=== PATIENT | female | born 1975 | race Caucasian/White ===

== ENCOUNTER 2016-07-13 15:50 | Inpatient (IN) | payer OTHER ==
[~2016-07-13] VITALS: Ht 170.2 cm; Wt 70.0 kg
[2016-07-13] VITALS (13 sets, daily range): BP systolic 102–160; BP diastolic 56–95; PULSE 72–103; RESP 16–22; TEMP 97.7–99.1; O2SAT 96–100
[~2016-07-13 15:50] MED LIST: CALC600T10 PO; FURO20 PO; HYDR25R PR; LOSA50TA PO; MIREIUD IU; OMPR20CCR PO; ONDA8 PO; POTA-267 PO; SYNT125T PO; TAB-TAB PO
[2016-07-13] MEDS ORDERED: SODIUM CHLOR 0.9% 1000 ML INJ 1,000 ML IV SCH (16:09)
--- NOTE | 2016-07-13 16:14 | PD ---
HPI Chief Complaint: GI Complaint Time Seen by Provider: 16:14 Travel History International Travel<30 days: No Contact w/Intl Traveler<30days: No Traveled to known affect area: No History of Present Illness HPI 41-year-old female with history of cardiomyopathy, anemia secondary to recurrent /chronic GI bleed, hypertension presents to emergency department for evaluation. Patient states that she has internal hemorrhoids that bleed on and off and she has required transfusions in the past. Patient called Dr. Kamara this week and she has been having frequent stools again. She has an appointment follow-up with him in approximately a week but was advised if she didn't feel she could wait that long to come to the emergency department. Patient states she has been tired and more fatigued over the last 3 days. She is having intermittent bouts of dizziness with ambulation. No fever chills. No chest or tightness. Mild nausea without vomiting. No other symptoms to report at this time. PFSH Past Medical History Anemia: Yes Blood Disorders: No Cancer: No Cardiomyopathy: Yes Cardiovascular Problems: Yes (CARDIOMYOPATHY; ANEMIA; HTN; HX MULTIPLE BLOOD TRANSFUSIONS) Chemotherapy: No Diminished Hearing: No Endocrine: Yes Genitourinary: No Headaches: Yes Immune Disorder: No Musculoskeletal: No Neurologic: Yes Psychiatric: No Reproductive: No Respiratory: No Radiation Therapy: No Thyroid Disease: Yes (HYPO) ?: Not : 1 Para: 1 Miscarriage: 0 : 0 Past Surgical History Abdominal Surgery: No AICD: No Arteriovenous Shunt: No Cardiac Surgery: No Section: Yes Ear Surgery: No Endocrine Surgery: Yes (THYROIDECTOMY) Eye Surgery: No Genitourinary Surgery: No Gynecologic Surgery: No Insulin Pump: No Joint Replacement: No Oral Surgery: No Pacemaker: No Thoracic Surgery: No Other Surgery: Yes (THYROIDECTOMY) Social History Alcohol Use: No (DENIES) Tobacco Use: No (DENIES) Substance Use: No (DENIES) Allergies-Medications (Allergen,Severity, Reaction): Coded Allergies: Tramadol (Verified Allergy, Severe, 07/13/16) HIVES/SWELLING Procardia (Verified Adverse Reaction, Mild, INCREASE HR, TREMBLING, ) Reported Meds & Prescriptions Reported Meds & Active Scripts Active Reported Losartan (Losartan Potassium) 50 Mg Tab 50 Mg PO HS Multivitamin Adults (Multiple Vitamins W/ Minerals) 1 Tab 1 Tab PO HS Prilosec (Omeprazole) 20 Mg Cap 20 Mg PO HS Zofran (Ondansetron HCl) 8 Mg Tab 8 Mg PO Q8HR PRN Potassium Chloride CR (Potassium Chloride) 10 Meq Tab 10 Meq PO DAILY Synthroid (Levothyroxine Sodium) 125 Mcg Tab 125 Mcg PO HS Mirena (Levonorgestrel (Iud)) 20 Mcg/24 Hr Iud 52 Mg I-UTERINE ONCE Lasix (Furosemide) 20 Mg Tab 20 Mg PO DAILY Calcium 500 +D (Calcium Carbonate-Cholecalciferol) 500-400 Mg-Unit Tab 1 Tab PO HS Review of Systems Except as stated in HPI: all other systems reviewed are Neg Physical Exam Narrative GENERAL: Well-nourished female patient, sitting up in bed, in no acute distress SKIN: Warm and dry. Pallor HEAD: Atraumatic. Normocephalic. EYES: Pupils equal and round. No scleral icterus. No injection or drainage. ENT: No nasal bleeding or discharge. Mucous membranes pink and moist. NECK: Trachea midline. No JVD. CARDIOVASCULAR: Tachycardic rate and rhythm. No murmur appreciated. RESPIRATORY: No accessory muscle use. Clear to auscultation. Breath sounds equal bilaterally. GASTROINTESTINAL: Abdomen soft, non-tender, nondistended. Hepatic and splenic margins not palpable. RECTAL EXAM: External hemorrhoids. No stool in the rectal vault. No active bleeding. MUSCULOSKELETAL: No obvious deformities. No clubbing. No cyanosis. No edema. NEUROLOGICAL: Awake and alert. No obvious cranial nerve deficits. Motor grossly within normal limits. Normal speech. PSYCHIATRIC: Appropriate mood and affect; insight and judgment normal. Data Data Last Documented VS Vital Signs Date Time Temp Pulse Resp B/P Pulse Ox O2 Delivery O2 Flow Rate FiO2 07/13/16 16:46 100 Room Air 07/13/16 15:52 98.1 103 16 140/95 Orders Basic Metabolic Panel (Bmp) (07/13/16 16:09) Complete Blood Count With Diff (07/13/16 16:09) Prothrombin Time / Inr (Pt) (07/13/16 16:09) Act Partial Throm Time (Ptt) (07/13/16 16:09) Urinalysis - C+S If Indicated (07/13/16 16:09) Type And Screen (07/13/16 16:09) Ecg Monitoring (07/13/16 16:09) Iv Access Insert/Monitor (07/13/16 16:09) Oximetry (07/13/16 16:09) Sodium Chlor 0.9% 1000 Ml Inj (Ns 1000 M (07/13/16 16:09) Sodium Chloride 0.9% Flush (Ns Flush) (07/13/16 16:15) Red Blood Cells (Rbc) (07/13/16 17:10) Blood Product Administration .UPON TRANSFUSION (07/13/16 17:10) Sodium Chlor 0.9% 250 Ml Inj (Ns 250 Ml (07/13/16 17:15) Labs Laboratory Tests Test 07/13/16 07/13/16 16:29 16:40 White Blood Count 6.6 TH/MM3 Red Blood Count 2.79 MIL/MM3 Hemoglobin 7.1 GM/DL Hematocrit 21.7 % Mean Corpuscular Volume 77.7 FL Mean Corpuscular Hemoglobin 25.3 PG Mean Corpuscular Hemoglobin 32.6 % Concent Red Cell Distribution Width 16.7 % Platelet Count 273 TH/MM3 Mean Platelet Volume 9.5 FL Neutrophils (%) (Auto) 67.3 % Lymphocytes (%) (Auto) 22.2 % Monocytes (%) (Auto) 6.1 % Eosinophils (%) (Auto) 2.8 % Basophils (%) (Auto) 1.6 % Neutrophils # (Auto) 4.4 TH/MM3 Lymphocytes # (Auto) 1.5 TH/MM3 Monocytes # (Auto) 0.4 TH/MM3 Eosinophils # (Auto) 0.2 TH/MM3 Basophils # (Auto) 0.1 TH/MM3 CBC Comment DIFF FINAL Differential Comment Prothrombin Time 10.9 SEC Prothromb Time International 1.0 RATIO Ratio Activated Partial 22.6 SEC Thromboplast Time Sodium Level 137 MEQ/L Potassium Level 3.7 MEQ/L Chloride Level 103 MEQ/L Carbon Dioxide Level 27.1 MEQ/L Anion Gap 7 MEQ/L Blood Urea Nitrogen 11 MG/DL Creatinine 0.95 MG/DL Estimat Glomerular Filtration 65 ML/MIN Rate Random Glucose 98 MG/DL Calcium Level 8.8 MG/DL Blood Type O POSITIVE Urine Color YELLOW Urine Turbidity HAZY Urine pH 6.0 Urine Specific [place] 1.012 Urine Protein NEG mg/dL Urine Glucose (UA) NEG mg/dL Urine Ketones NEG mg/dL Urine Occult Blood NEG Urine Nitrite NEG Urine Bilirubin NEG Urine Urobilinogen LESS THAN 2.0 MG/DL Urine Leukocyte Esterase NEG Urine RBC 1 /hpf Urine WBC 3 /hpf Urine Squamous Epithelial 19 /hpf Cells Urine Bacteria OCC /hpf Urine Mucus FEW /lpf Microscopic Urinalysis Comment CULT NOT INDICATED MDM Medical Decision Making Medical Screen Exam Complete: Yes Emergency Medical Condition: Yes Medical Record Reviewed: Yes Differential Diagnosis GI bleed versus symptomatic anemia versus hemorrhoids versus electrolyte abnormality Narrative Course 41 year-old female presents to emergency department for evaluation. Patient appears overall without distress. She has pallor and mildly tachycardic. CBC is with a hemoglobin of 7.1. BMP is without acute concern. Urinalysis is hazy with occasional bacteria and few mucus. Culture is not indicated. I discussed the patient with my attending physician Dr. Hughes who recommends transfusion of 2 units and admitted to the observation unit for symptomatic anemia. Plan is discussed with the patient and she is in agreement the plan of care. [facility]. [facility] Point of Care Internal Pos. & Neg. Controls: Passed Fecal Specimen Occult Blood: Negative Comment No stool in the rectal vault. Diagnosis Primary Impression: Symptomatic anemia Admitting Information Admitting Physician Requests: Observation Condition: Stable LeydaShelby BROOKS Jul 13, 2016 16:14
[2016-07-13] MEDS ORDERED: SODIUM CHLORIDE 0.9% FLUSH 5 ML FLUSH IVF PRN (16:15)
[2016-07-13] MEDS ORDERED: CALC1TAB12 PO (16:51)
[2016-07-13] MEDS ORDERED: LOSA50TA PO (16:51)
[2016-07-13] MEDS ORDERED: PRIL20CA9 PO (16:51)
[2016-07-13] MEDS ORDERED: MIREIUD I-UTERINE (16:51)
[2016-07-13] MEDS ORDERED: POTA10TA8 PO (16:51)
[2016-07-13] MEDS ORDERED: ZOFR8TAB PO (16:51)
[2016-07-13] MEDS ORDERED: MULT1TAB84 PO (16:51)
[2016-07-13] MEDS ORDERED: FURO1TAB62 PO (16:51)
[2016-07-13] MEDS ORDERED: LEVO.125 PO (16:51)
[2016-07-13 17:03] LABS: AUTOMATED NEUTROPHIL # 4.4 TH/MM3 (1.8-7.7); BASOPHIL # 0.1 TH/MM3 (0-0.2); BASOPHIL % 1.6 % (0.0-2.0); EOSINOPHIL # 0.2 TH/MM3 (0-0.4); EOSINOPHIL % 2.8 % (0.0-4.0); HEMATOCRIT 21.7 % (35.0-46.0); HEMO FLAGS DIFF FINAL; LYMPH % 22.2 % (9.0-44.0); LYMPHOCYTE # 1.5 TH/MM3 (1.0-4.8); MEAN CELL VOLUME 77.7 FL (80.0-100.0); MEAN CORPUSCULAR HEMOGLOBIN 25.3 PG (27.0-34.0); MEAN CORPUSCULAR HGB CONC 32.6 % (32.0-36.0); MONO % 6.1 % (0.0-8.0); NEUT % 67.3 % (16.0-70.0); PLATELET COUNT 273 TH/MM3 (150-450); RED BLOOD COUNT 2.79 MIL/MM3 (4.00-5.30); RED CELL DISTRIBUTION WIDTH 16.7 % (11.6-17.2); WHITE BLOOD COUNT 6.6 TH/MM3 (4.0-11.0)
[2016-07-13 17:06] LABS: BACTERIA, URINE OCC /hpf; BLOOD, URINE NEG (NEG); COMMENT (UR) CULT NOT INDICATED; CULTURE IF INDICATED CULT NOT INDICATED; GLUCOSE,URINE NEG (NEG); KETONE, URINE NEG (NEG); MUCUS URINE FEW /lpf (OCC); NITRITE,URINE NEG (NEG); SQUAMOUS EPITHELIAL CELL URINE 19 /hpf (0-5); URINE COLOR YELLOW (YELLW/STRAW)
[2016-07-13 17:09] LABS: APTT (PATIENT) 22.6 SEC (24.3-30.1); PROTHROMBIN TIME - PATIENT 10.9 SEC (9.8-11.6)
[2016-07-13 17:13] LABS: BICARBONATE 27.1 MEQ/L (21.0-32.0); POTASSIUM 3.7 MEQ/L (3.5-5.1)
[2016-07-13] MEDS ORDERED: SODIUM CHLOR 0.9% 250 ML INJ 250 ML IV ONE (17:15)
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
[2016-07-13] MEDS ORDERED: NALOXONE HCL 0.4 MG/ML AMP IV PRN (18:15)
[2016-07-13] MEDS ORDERED: ONDANSETRON ODT 4 MG TAB PO PRN (18:15)
[2016-07-13] MEDS ORDERED: ONDANSETRON HCL 4 MG/2 ML VIAL IVP PRN (18:15)
[2016-07-13] MEDS ORDERED: diphenhydrAMINE HCL 50 MG/ML VIAL IV PUSH ONE (18:30)
[2016-07-13] MEDS: SODIUM CHLORIDE 0.9% FLUSH 5 ML FLUSH FLUSH PRN (18:31)
[2016-07-13] MEDS: ACETAMINOPHEN 325 MG TAB PO PRN ×2 (18:50→23:58)
--- NOTE | 2016-07-13 19:04 | PD ---
Physical Exam Date Seen by Provider: Jul 13, 2016 Time Seen by Provider: 17:00 Narrative I, Dr. Greenberg, have reviewed the advance practice practitioner's documentation and am in agreement, met with the patient face to face, made the diagnosis, and the medical decision making was done by me. *My assessment and Findings: Patient evaluated with PA, please see PA note for further inpatient. Considering the patient's bleeding and significant anemia, 2 units of blood were ordered for the patient and patient is admitted for further evaluation and treatment. Laboratory Tests Test 07/13/16 07/13/16 16:29 16:40 Red Blood Count 2.79 MIL/MM3 (4.00-5.30) Hemoglobin 7.1 GM/DL (11.6-15.3) Hematocrit 21.7 % (35.0-46.0) Mean Corpuscular Volume 77.7 FL (80.0-100.0) Mean Corpuscular Hemoglobin 25.3 PG (27.0-34.0) Activated Partial 22.6 SEC Thromboplast Time (24.3-30.1) Estimat Glomerular Filtration 65 ML/MIN (>89) Rate Urine Turbidity HAZY (CLEAR) Urine Bacteria OCC /hpf (NONE) Urine Mucus FEW /lpf (OCC) Data Data Last Documented VS Vital Signs Date Time Temp Pulse Resp B/P Pulse Ox O2 Delivery O2 Flow Rate FiO2 07/13/16 16:46 100 Room Air 07/13/16 15:52 98.1 103 16 140/95 Orders Basic Metabolic Panel (Bmp) (07/13/16 16:09) Complete Blood Count With Diff (07/13/16 16:09) Prothrombin Time / Inr (Pt) (07/13/16 16:09) Act Partial Throm Time (Ptt) (07/13/16 16:09) Urinalysis - C+S If Indicated (07/13/16 16:09) Type And Screen (07/13/16 16:09) Ecg Monitoring (07/13/16 16:09) Iv Access Insert/Monitor (07/13/16 16:09) Oximetry (07/13/16 16:09) Sodium Chlor 0.9% 1000 Ml Inj (Ns 1000 M (07/13/16 16:09) Sodium Chloride 0.9% Flush (Ns Flush) (07/13/16 16:15) Red Blood Cells (Rbc) (07/13/16 17:10) Blood Product Administration .UPON TRANSFUSION (07/13/16 17:10) Sodium Chlor 0.9% 250 Ml Inj (Ns 250 Ml (07/13/16 17:15) Admit Order (Ed Use Only) (07/13/16 17:22) Labs Laboratory Tests Test 07/13/16 07/13/16 16:29 16:40 White Blood Count 6.6 TH/MM3 Red Blood Count 2.79 MIL/MM3 Hemoglobin 7.1 GM/DL Hematocrit 21.7 % Mean Corpuscular Volume 77.7 FL Mean Corpuscular Hemoglobin 25.3 PG Mean Corpuscular Hemoglobin 32.6 % Concent Red Cell Distribution Width 16.7 % Platelet Count 273 TH/MM3 Mean Platelet Volume 9.5 FL Neutrophils (%) (Auto) 67.3 % Lymphocytes (%) (Auto) 22.2 % Monocytes (%) (Auto) 6.1 % Eosinophils (%) (Auto) 2.8 % Basophils (%) (Auto) 1.6 % Neutrophils # (Auto) 4.4 TH/MM3 Lymphocytes # (Auto) 1.5 TH/MM3 Monocytes # (Auto) 0.4 TH/MM3 Eosinophils # (Auto) 0.2 TH/MM3 Basophils # (Auto) 0.1 TH/MM3 CBC Comment DIFF FINAL Differential Comment Prothrombin Time 10.9 SEC Prothromb Time International 1.0 RATIO Ratio Activated Partial 22.6 SEC Thromboplast Time Sodium Level 137 MEQ/L Potassium Level 3.7 MEQ/L Chloride Level 103 MEQ/L Carbon Dioxide Level 27.1 MEQ/L Anion Gap 7 MEQ/L Blood Urea Nitrogen 11 MG/DL Creatinine 0.95 MG/DL Estimat Glomerular Filtration 65 ML/MIN Rate Random Glucose 98 MG/DL Calcium Level 8.8 MG/DL Blood Type O POSITIVE Antibody Screen NEGATIVE Urine Color YELLOW Urine Turbidity HAZY Urine pH 6.0 Urine Specific [place] 1.012 Urine Protein NEG mg/dL Urine Glucose (UA) NEG mg/dL Urine Ketones NEG mg/dL Urine Occult Blood NEG Urine Nitrite NEG Urine Bilirubin NEG Urine Urobilinogen LESS THAN 2.0 MG/DL Urine Leukocyte Esterase NEG Urine RBC 1 /hpf Urine WBC 3 /hpf Urine Squamous Epithelial 19 /hpf Cells Urine Bacteria OCC /hpf Urine Mucus FEW /lpf Microscopic Urinalysis Comment CULT NOT INDICATED MDM Medical Record Reviewed: Yes Supervised Visit with FABI: Yes Diagnosis Primary Impression: Symptomatic anemia Admitting Information Admitting Physician Requests: Admit Condition: Stable Michael Greenberg MD Jul 13, 2016 19:04
[2016-07-13] MEDS: SODIUM CHLORIDE 0.9% FLUSH 5 ML FLUSH FLUSH SCH (21:00)
[2016-07-13] MEDS: LEVOTHYROXINE SODIUM 125 MCG TAB PO SCH (21:08)
[2016-07-13] MEDS: LOSARTAN 50 MG TAB PO SCH (21:08)
[2016-07-13] MEDS: PANTOPRAZOLE SOD 20 MG DELAYED RELEASE TAB PO SCH (21:08)
[2016-07-13] MEDS ORDERED: SODIUM CHLORID 0.9% 500 ML INJ 500 ML IV SCH (23:30)
[2016-07-14] VITALS (8 sets, daily range): BP systolic 106–136; BP diastolic 61–84; PULSE 62–78; RESP 16–18; TEMP 96–99; O2SAT 98–100
[2016-07-14 05:21] LABS: AUTOMATED NEUTROPHIL # 2.4 TH/MM3 (1.8-7.7); BASOPHIL # 0.1 TH/MM3 (0-0.2); BASOPHIL % 1.9 % (0.0-2.0); EOSINOPHIL # 0.2 TH/MM3 (0-0.4); EOSINOPHIL % 4.3 % (0.0-4.0); HEMATOCRIT 25.5 % (35.0-46.0); HEMO FLAGS DIFF FINAL; LYMPH % 39.3 % (9.0-44.0); LYMPHOCYTE # 2.1 TH/MM3 (1.0-4.8); MEAN CORPUSCULAR HEMOGLOBIN 27.1 PG (27.0-34.0); MEAN CORPUSCULAR HGB CONC 33.5 % (32.0-36.0); MONO % 9.6 % (0.0-8.0); NEUT % 44.9 % (16.0-70.0); PLATELET COUNT 195 TH/MM3 (150-450); RED BLOOD COUNT 3.15 MIL/MM3 (4.00-5.30); RED CELL DISTRIBUTION WIDTH 15.8 % (11.6-17.2); WHITE BLOOD COUNT 5.3 TH/MM3 (4.0-11.0)
[2016-07-14 06:01] LABS: BICARBONATE 23.8 MEQ/L (21.0-32.0); POTASSIUM 3.6 MEQ/L (3.5-5.1)
[2016-07-14] MEDS: POTASSIUM CHLORIDE 10 MEQ CONTROLLED RELEASE TAB PO SCH (08:40)
[2016-07-14] MEDS: FUROSEMIDE 20 MG TAB PO SCH (08:40)
[2016-07-14] MEDS: SODIUM CHLORIDE 0.9% FLUSH 5 ML FLUSH FLUSH SCH ×2 (08:40→21:00)
[2016-07-14 13:41] LABS: HEMATOCRIT 29.3 % (35.0-46.0)
--- NOTE | 2016-07-14 14:36 | HHI.PR ---
Subjective Remarks Patient seen in follow-up for hematochezia. She reports she had one episode of rectal bleeding earlier today. No abdominal pain. No nausea or vomiting. Objective Vitals Vital Signs Date Time Temp Pulse Resp B/P Pulse Ox O2 Delivery O2 Flow Rate FiO2 07/14/16 12:40 99 07/14/16 12:00 97.9 75 18 134/76 100 07/14/16 08:00 98.3 71 18 132/75 100 07/14/16 04:00 97.3 62 16 106/61 98 07/14/16 01:32 96.0 68 18 130/77 100 07/13/16 23:46 72 07/13/16 22:45 98.5 75 18 123/75 98 07/13/16 22:28 97.7 80 18 160/72 100 07/13/16 21:15 97.9 77 18 122/62 100 07/13/16 21:00 76 07/13/16 19:20 102 22 102/56 98 Room Air 07/13/16 19:05 98.9 90 22 102/56 98 Room Air 07/13/16 18:50 98.8 85 19 112/68 98 Room Air 07/13/16 18:36 99.1 94 22 125/66 97 Room Air 07/13/16 18:36 99.1 92 22 125/66 98 Room Air 07/13/16 18:27 96 07/13/16 18:14 96 22 130/68 97 Room Air 07/13/16 16:46 100 Room Air 07/13/16 15:52 98.1 103 16 140/95 100 Room Air I/O 07/13/16 07/13/16 07/13/16 07/14/16 07/14/16 07/14/16 07:00 15:00 23:00 07:00 15:00 23:00 Intake Total 750 ml Output Total 0 ml Balance 750 ml Intake Oral 0 ml IV Total 250 ml Packed Cells 500 ml Output Urine Total 0 ml # Voids 1 # Bowel Movements 0 Result Diagram: 07/14/16 1324 07/14/16 0416 Objective Remarks GENERAL: This is a well-nourished, well-developed patient, in no apparent distress. CARDIOVASCULAR: Normal rate and regular rhythm without murmurs, gallops, or rubs. RESPIRATORY: Good respiratory efforts. Breath sounds equal and clear to auscultation bilaterally. GASTROINTESTINAL: Abdomen soft, non-tender, non-distended. Normal active bowel sounds MUSCULOSKELETAL: Extremities without cyanosis, or edema. NEURO: Alert & Oriented x4 to person, place, time, situation. Moves all ext x4 PSYCH: Appropriate mood and affect. A/P Problem List: (1) Symptomatic anemia ICD Code: D64.9 Status: Acute (2) Hematochezia ICD Code: K92.1 Status: Acute (3) Cardiomyopathy ICD Code: I42.9 Status: Chronic (4) Nausea & vomiting ICD Code: R11.2 Status: Acute (5) Hypothyroid ICD Code: E03.9 Status: Chronic (6) HTN (hypertension) ICD Code: I10 Status: Chronic Assessment and Plan 41 Y/O female patient with acute on chronic anemia secondary to blood loss from chronic GI bleeding. Patient reports that for the past, "couple of weeks," She has been passing kenny blood into the toilet. She has been symptomatic for the past 3 days experiencing weakness, shortness of breath with exertion and nausea. She was being followed by Colorectal surgery and surgical intervention was suggested at the last visit for hemorrhoids but did not have a chance to follow up. Symptomatic anemia GI bleed Colorectal surgery, Dr. Hutchison consulted. Patient is known to her Status post 2 units packed red blood cells transfusion on 07/13/16. H&H stable this morning. Monitor H&H every 12 hours. Transfuse to keep hemoglobin above 8 given reported history of cardiomyopathy. Monitor for profuse active bleeding Nausea- Zofran as needed Hypothyroidism: continue Synthroid Hypertension: continue losartan hold if systolic blood pressure less than 110 History of cardiomyopathy: monitor closely with telemetry DVT prophylaxis SCDs. No chemical DVT prophylaxis due to GI bleed Heidi Mullins MD Jul 14, 2016 14:36
[2016-07-14 18:17] LABS: HEMATOCRIT 29.7 % (35.0-46.0)
[2016-07-14] MEDS: LOSARTAN 50 MG TAB PO SCH (20:56)
[2016-07-14] MEDS: PANTOPRAZOLE SOD 20 MG DELAYED RELEASE TAB PO SCH (20:56)
[2016-07-14] MEDS: LEVOTHYROXINE SODIUM 125 MCG TAB PO SCH (20:56)
[2016-07-15] VITALS (8 sets, daily range): BP systolic 105–132; BP diastolic 60–82; PULSE 69–97; RESP 20; TEMP 96.7–99; O2SAT 97–100
[2016-07-15 01:43] LABS: HEMATOCRIT 27.8 % (35.0-46.0); REVIEW FLAG FINAL
[2016-07-15 05:50] LABS: HEMATOCRIT 28.9 % (35.0-46.0); MEAN CELL VOLUME 80.2 FL (80.0-100.0); MEAN CORPUSCULAR HEMOGLOBIN 26.1 PG (27.0-34.0); MEAN CORPUSCULAR HGB CONC 32.6 % (32.0-36.0); PLATELET COUNT 219 TH/MM3 (150-450); RED CELL DISTRIBUTION WIDTH 16.7 % (11.6-17.2); REVIEW FLAG FINAL; WHITE BLOOD COUNT 6.1 TH/MM3 (4.0-11.0)
--- NOTE | 2016-07-15 06:02 | MB ---
cc: ROXIE HUTCHISON M.D. DATE OF CONSULTATION July 14, 2016 CHIEF COMPLAINT Rectal bleeding. HISTORY OF PRESENT ILLNESS The patient is a 41-year-old female who is well known to myself. I have seen her for rectal bleeding several times in the past, and in the fall I saw her and we actually talked about her undergoing a hemorrhoidectomy as she had fairly profuse bleeding from the rectum. Unfortunately she failed to follow up with me and came to the hospital as an emergency with continued bleeding, fatigue, weakness, and shortness of breath. She denies any abdominal pain. She has had some constipation in the past but currently is not having constipation, but is moving her bowels daily without straining. She has had a full workup, actually more than once, with upper scope, lower scope, and Pill cam, as well as cautery of her internal hemorrhoids. When she arrived in the emergency department she was noted have a hemoglobin of 7.1. PAST MEDICAL HISTORY 1. Hypothyroidism. 2. Cardiomyopathy. 3. Hypertension. PAST SURGICAL HISTORY 1. . 2. ICD. 3. Partial thyroidectomy. 4. Cardiac catheterization. ALLERGIES TRAMADOL. PROCARDIA. MEDICATIONS 1. Losartan. 2. Prilosec. 3. Zofran. 4. Synthroid. 5. Lasix. 6. Loryna. 7. Calcium. 8. Potassium. 9. Multivitamin. SOCIAL HISTORY The patient denies tobacco or alcohol use. PHYSICAL EXAMINATION GENERAL: The physical exam reveals a pleasant female who appears comfortable. NEURO: Grossly intact. SKIN: Warm and dry. HEAD: Normocephalic, atraumatic. CARDIOVASCULAR: Regular rate. RESPIRATORY: Breathing is symmetric bilaterally, nonlabored. ABDOMEN: Soft, nontender, nondistended. EXTREMITIES: No edema. RECTAL: External anal exam reveals large external hemorrhoids with no sign of any active bleeding. LABORATORY WORK From today reveals a hemoglobin of 9.6 after a transfusion of 2 units, white blood cell count is 5.3, platelets are 195. Chemistry is essentially normal. Her PT, INR and APTT are basically normal. Urinalysis is negative. IMPRESSION Rectal bleeding. Chronic anemia. PLAN Unfortunately I do not have any time in my schedule this week to add on a hemorrhoidectomy. If her hemoglobin can stay stable for 24-48 hours, she can be discharged to home with and we can plan for an outpatient hemorrhoidectomy next week. If not, I will see if I can fit her in Thursday but more likely Thursday for a hemorrhoidectomy. In the meantime she can certainly have a regular diet. Roxie Hutchison MD KW/SSB /2:55 PM /5:50 AM [facility]aul
[2016-07-15 06:19] LABS: BICARBONATE 24.1 MEQ/L (21.0-32.0); POTASSIUM 3.7 MEQ/L (3.5-5.1)
[2016-07-15] MEDS: FUROSEMIDE 20 MG TAB PO SCH (08:50)
[2016-07-15] MEDS: POTASSIUM CHLORIDE 10 MEQ CONTROLLED RELEASE TAB PO SCH (08:50)
[2016-07-15] MEDS: SODIUM CHLORIDE 0.9% FLUSH 5 ML FLUSH FLUSH SCH ×2 (08:51→21:17)
--- NOTE | 2016-07-15 10:25 | HHI.PR ---
Subjective Remarks Patient reports that she had a large amount of rectal bleeding this morning around 4 AM. She reports feeling nauseous, lightheaded this morning. Not feeling well overall. She just had breakfast and had vomiting. Labs were drawn around the same time. H&H this morning is 9.4/28.9 Objective Vitals Vital Signs Date Time Temp Pulse Resp B/P Pulse Ox O2 Delivery O2 Flow Rate FiO2 07/15/16 08:00 97.1 72 20 105/60 100 07/15/16 04:00 98.9 82 20 132/76 97 07/15/16 00:00 99.0 74 20 126/80 98 07/14/16 20:00 99.0 78 18 135/84 99 07/14/16 18:08 99 21 07/14/16 16:00 97.6 77 18 136/83 100 07/14/16 12:40 99 07/14/16 12:00 97.9 75 18 134/76 100 I/O 07/14/16 07/14/16 07/14/16 07/15/16 07/15/16 07/15/16 07:00 15:00 23:00 07:00 15:00 23:00 Intake Total 750 ml 902 ml 640 ml 480 ml Output Total 0 ml 500 ml 750 ml 300 ml Balance 750 ml 402 ml -110 ml 180 ml Intake Oral 0 ml 0 ml 640 ml 480 ml IV Total 250 ml 902 ml Packed Cells 500 ml Output Urine Total 0 ml 500 ml 750 ml 300 ml # Bowel Movements 0 1 0 0 Result Diagram: 07/15/1642007/15/16420 Objective Remarks GENERAL: Patient appears uncomfortable. Reports nausea. CARDIOVASCULAR: Normal rate and regular rhythm without murmurs, gallops, or rubs. RESPIRATORY: Good respiratory efforts. Breath sounds equal and clear to auscultation bilaterally. GASTROINTESTINAL: Abdomen soft, non-tender, non-distended. Normal active bowel sounds MUSCULOSKELETAL: Extremities without cyanosis, or edema. NEURO: Alert & Oriented x4 to person, place, time, situation. Moves all ext x4 PSYCH: Appropriate mood and affect. A/P Problem List: (1) Symptomatic anemia ICD Code: D64.9 Status: Acute (2) Hematochezia ICD Code: K92.1 Status: Acute (3) Cardiomyopathy ICD Code: I42.9 Status: Chronic (4) Nausea & vomiting ICD Code: R11.2 Status: Acute (5) Hypothyroid ICD Code: E03.9 Status: Chronic (6) HTN (hypertension) ICD Code: I10 Status: Chronic Assessment and Plan 41 Y/O female patient with acute on chronic anemia secondary to blood loss from chronic GI bleeding. Patient reports that for the past, "couple of weeks," She has been passing kenny blood into the toilet. She has been symptomatic for the past 3 days prior to admission experiencing weakness, shortness of breath with exertion and nausea. She was being followed by Colorectal surgery and surgical intervention was suggested at the last visit for hemorrhoids but did not have a chance to follow up. Symptomatic anemia GI bleed Colorectal surgery, Dr. Hutchison consulted. No immediate opening in her schedule. Consideration for sending the patient home to have procedure outpatient. However today she reported another large episode of rectal bleeding with associated symptoms. Need to ensure her H&H remains stable. Further plans per Colorectal Surgery. Status post 2 units packed red blood cells transfusion on 07/13/16. Repeat H& H now and Q12H. Transfuse to keep hemoglobin above 8 given reported history of cardiomyopathy. Monitor for profuse active bleeding Nausea- Zofran as needed Hypothyroidism: continue Synthroid Hypertension: continue losartan, hold if systolic blood pressure less than 110 History of cardiomyopathy: monitor closely with telemetry DVT prophylaxis SCDs. No chemical DVT prophylaxis due to GI bleed Heidi Mullins MD Jul 15, 2016 10:25
[2016-07-15 12:50] LABS: HEMATOCRIT 30.2 % (35.0-46.0); REVIEW FLAG FINAL
[2016-07-15] MEDS: SODIUM CHLORIDE 0.9% FLUSH 5 ML FLUSH FLUSH PRN (14:41)
[2016-07-15] MEDS: ACETAMINOPHEN 325 MG TAB PO PRN ×2 (14:41→23:45)
[2016-07-15] MEDS ORDERED: WITCH HAZEL 50%/GLYCERIN 12.5% 40 PAD JAR TOPICAL PRN (15:00)
[2016-07-15] MEDS ORDERED: PROMETHAZINE HCL 25 MG TAB PO PRN (19:15)
[2016-07-15] MEDS: LOSARTAN 50 MG TAB PO SCH (21:14)
[2016-07-15] MEDS: LEVOTHYROXINE SODIUM 125 MCG TAB PO SCH (21:14)
[2016-07-15] MEDS: PANTOPRAZOLE SOD 20 MG DELAYED RELEASE TAB PO SCH (21:14)
[2016-07-15 21:38] LABS: HEMATOCRIT 28.5 % (35.0-46.0); REVIEW FLAG FINAL
--- NOTE | 2016-07-15 23:27 | HHI.PR ---
Subjective Remarks anemia patient complains of nausea Objective Vital Signs Date Time Temp Pulse Resp B/P Pulse Ox O2 Delivery O2 Flow Rate FiO2 07/15/16 20:00 97.8 81 20 128/82 100 07/15/16 18:19 99 21 07/15/16 16:00 96.7 97 20 122/70 100 07/15/16 15:41 18 07/15/16 12:00 97.9 90 20 119/77 99 07/15/16 08:00 97.1 72 20 105/60 100 07/15/16 08:00 69 07/15/16 04:00 98.9 82 20 132/76 97 07/15/16 00:00 99.0 74 20 126/80 98 I/O 07/14/16 07/14/16 07/14/16 07/15/16 07/15/16 07/15/16 06:59 14:59 22:59 06:59 14:59 22:59 Intake Total 750 ml 902 ml 640 ml 480 ml 120 ml 480 ml Output Total 0 ml 500 ml 750 ml 300 ml 700 ml Balance 750 ml 402 ml -110 ml 180 ml 120 ml -220 ml Intake Oral 0 ml 0 ml 640 ml 480 ml 120 ml 480 ml IV Total 250 ml 902 ml Packed Cells 500 ml Output Urine Total 0 ml 500 ml 750 ml 300 ml 700 ml # Voids 2 # Bowel Movements 0 1 0 0 1 0 Result Diagram: 07/15/16205707/15/16 0421 Objective Remarks Some bleeding today Hemoglobin stable Assessment and Plan Assessment and Plan Patient continues to have bleeding but hemoglobin stable Nausea unrelated to either hemorrhoids or anemia Hemorrhoidectomy next week either as outpatient or inpatient Roxie Hutchison MD Jul 15, 2016 23:27
[2016-07-16] VITALS: BP 116/66; PULSE 83; RESP 20; TEMP 98.9; O2SAT 99
[2016-07-16 04:34] VITALS: BP 118/70; PULSE 80; RESP 20; TEMP 97; O2SAT 98
[2016-07-16 06:23] LABS: HEMATOCRIT 26.7 % (35.0-46.0); MEAN CELL VOLUME 80.2 FL (80.0-100.0); MEAN CORPUSCULAR HEMOGLOBIN 27.2 PG (27.0-34.0); MEAN CORPUSCULAR HGB CONC 33.9 % (32.0-36.0); PLATELET COUNT 219 TH/MM3 (150-450); RED BLOOD COUNT 3.33 MIL/MM3 (4.00-5.30); RED CELL DISTRIBUTION WIDTH 16.6 % (11.6-17.2); REVIEW FLAG FINAL; WHITE BLOOD COUNT 7.9 TH/MM3 (4.0-11.0)
[2016-07-16 06:55] LABS: BICARBONATE 25.5 MEQ/L (21.0-32.0); POTASSIUM 3.8 MEQ/L (3.5-5.1)
[2016-07-16 08:00] VITALS: BP 93/54; PULSE 63; RESP 16; TEMP 97.9; O2SAT 100
--- NOTE | 2016-07-16 08:32 | HHI.PR ---
Subjective Remarks anemia less blood Objective Vital Signs Date Time Temp Pulse Resp B/P Pulse Ox O2 Delivery O2 Flow Rate FiO2 07/16/16 04:34 97.0 80 20 118/70 98 07/16/16 00:00 98.9 83 20 116/66 99 07/15/16 20:05 78 07/15/16 20:00 97.8 81 20 128/82 100 07/15/16 18:19 99 21 07/15/16 16:00 96.7 97 20 122/70 100 07/15/16 15:41 18 07/15/16 12:00 97.9 90 20 119/77 99 I/O 07/15/16 07/15/16 07/15/16 07/16/16 07/16/16 07/16/16 07:00 15:00 23:00 07:00 15:00 23:00 Intake Total 480 ml 120 ml 480 ml 480 ml Output Total 300 ml 700 ml 600 ml Balance 180 ml 120 ml -220 ml -120 ml Intake Oral 480 ml 120 ml 480 ml 480 ml Output Urine Total 300 ml 700 ml 600 ml # Voids 2 # Bowel Movements 0 1 0 0 Result Diagram: 07/16/16 0543 07/16/16 0543 Objective Remarks Hemoglobin 9.0, about where it should be with 2 units with starting hgb 7.1 Assessment and Plan Assessment and Plan Hemorrhoidectomy scheduled for Thursday either as inpatient or outpatient. Roxie Hutchison MD Jul 16, 2016 08:32
[2016-07-16 08:45] VITALS: PULSE 70
[2016-07-16] MEDS: SODIUM CHLORIDE 0.9% FLUSH 5 ML FLUSH FLUSH SCH (08:53)
[2016-07-16] MEDS: FUROSEMIDE 20 MG TAB PO SCH (08:53)
[2016-07-16] MEDS: POTASSIUM CHLORIDE 10 MEQ CONTROLLED RELEASE TAB PO SCH (08:53)
[2016-07-16 10:54] LABS: HEMATOCRIT 27.2 % (35.0-46.0); REVIEW FLAG FINAL
[2016-07-16 12:00] VITALS: BP 113/73; PULSE 78; RESP 17; TEMP 97.5; O2SAT 99
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
[2016-07-21] MEDS ORDERED: ACET-703 PO (14:55)
== END 2016-07-16 13:50 | disposition home or self-care (01) | DRG 378 ==
LOC: NEPA 15:50 → NEDA 17:24 → OBSVTOIN 18:14 → NEPHCDU 20:15 → N07A 23:33
PROVIDERS: ADMIT Family Medicine; ATTEND Family Medicine
PROC: 30253N1 (ICD-10-PCS; principal; 2016-07-13)
DX: K92.1 Melena (principal); I42.9 Cardiomyopathy, unspecified; D62 Acute posthemorrhagic anemia; E03.9 Hypothyroidism, unspecified; I10 Essential (primary) hypertension; X00.0XXA Exposure to flames in uncontrolled fire in building or structure, initial encounter; Y92.009 Unspecified place in unspecified non-institutional (private) residence as the place of occurrence of the external cause
CPT/HCPCS: 36430; 80048; 81001; 82272; 85014; 85018; 85025; 85027; 85610; 85730; 86850; 86900; 86901; 86920; 96360; J1200; J2405; J7030; J7040; J7050; P9016

== ENCOUNTER → 2016-07-21 | Day surgery (SDC) | payer OTHER ==
[~2016-07-21] VITALS: Ht 170.2 cm; Wt 64.7 kg
[~2016-07-21] MED LIST changes: +*morphine SULFATE 8 MG/ML PERIprocedure ONLY ONE; +ACET-703 PO; +BUPIVACAINE HCL PF 0.5% 30 ML VIAL ONE; +CALC1TAB12 PO; -CALC600T10 PO; +DO NOT ADM ANY ANTICOAGULANT DRUGS XX PRN; +FURO1TAB62 PO; -FURO20 PO; +HYDR-3516 PO; -HYDR25R PR; +INSULIN HUMAN REGULAR 1,000 UNITS/10 ML VIAL SQ PRN; +KETAMINE HCL 500 MG/5 ML VIAL ONE; +LACTATED RINGER'S 1000 ML IV SCH; +LEVO.125 PO; +LIDOCAINE 0.5%/EPINEPHrine 1:200,000 SOLN 50 ML VIAL ONE; +METOPROLOL TARTRATE 25 MG TAB PO PRN; +MIDAZOLAM HCL 2 MG/2 ML VIAL ONE; +MIRA33504 PO; +MIREIUD I-UTERINE; -MIREIUD IU; +MULT1TAB84 PO; -OMPR20CCR PO; -ONDA8 PO; +ONDANSETRON HCL 4 MG/2 ML VIAL IV PUSH ONE; +ONDANSETRON HCL 4 MG/2 ML VIAL ONE; +PERC10TA27 PO; +PHENYLEPH/NS 1000 MCG/10 ML SYR IV ONE; -POTA-267 PO; +POTA10TA8 PO; +PRIL20CA9 PO; +PROPOFOL 200 MG/20 ML AMP IV ONE; +SODIUM CHLORID 0.9% 500 ML IV SCH; -SYNT125T PO; -TAB-TAB PO; +ZOFR8TAB PO; +fentaNYL CITRATE 250 MCG/5 ML AMP ONE
[2016-07-21 15:03] VITALS: BP 119/80; PULSE 88; RESP 18; TEMP 98.3; O2SAT 100
[2016-07-21 18:45] VITALS: BP 107/60; PULSE 70; RESP 16; TEMP 98.9; O2SAT 100
--- NOTE | 2016-07-22 21:04 | MP ---
cc: FARNAZ HUTCHISON M.D., MARK A. M.D. DATE OF SURGERY 07/21/16 PREOPERATIVE DIAGNOSIS 1. Rectal bleeding 2. Anemia. 3. Third degree internal/external hemorrhoids. DIAGNOSIS 1. Rectal bleeding 2. Anemia. 3. Third degree internal/external hemorrhoids. PROCEDURE Excisional three quadrant hemorrhoidectomy. SURGEON Edward Hutchison MD ANESTHESIA IV sedation with local. OPERATIVE INDICATIONS The patient is a 41-year-old female with a history of severe anemia and rectal bleeding, with hemorrhoids. OPERATIVE FINDINGS Large third degree hemorrhoids in all three quadrants. OPERATIVE COURSE The patient was brought to the operating room and placed in the supine position. After IV sedation, the patient was turned to the left lateral position. All bony prominences were carefully padded. The skin of the buttocks was then taped apart. The perineal area was then prepped and draped in the usual sterile fashion. Beginning in the right posterior position, the hemorrhoidal complex was grasped and pulled away from the underlying internal sphincter muscle. A V-shaped incision was made, with the apex of the V being located 2 cm distal to the anal verge. The hemorrhoidal complex was then carefully dissected free from the underlying internal sphincter muscle up to the level of the pedicle, where it was amputated. The pedicle was then controlled in a [id number] fashion using 3-0 Vicryl and the resulting mucosal defect was closed in a running fashion using 3-0 Vicryl. The hemorrhoid in the right anterior and left lateral position were then removed in the same fashion. At the close of this procedure, all three incisions were examined. The right posterior incision was noted to have some bleeding. This was controlled in a [id number] fashion using 3-0 Vicryl. Sterile dressing was applied. All sponge, needle and instrument counts were correct. The patient was returned to the post anesthesia care unit in a stable condition. MD HAL Duckworth/ /5:26 PM /8:[address] [facility]
== END | disposition home or self-care (01) ==
LOC: HSDC 14:09
PROVIDERS: ATTEND Colon & Rectal Surgery
DX: K92.1 Melena (principal); D64.9 Anemia, unspecified; K64.4 Residual hemorrhoidal skin tags; K64.2 Third degree hemorrhoids
CPT/HCPCS: 00902; 46260; 88304; J2250; J2270; J2370; J2405; J3010

== ENCOUNTER 2016-07-26 10:59 | Emergency (ER) | payer OTHER ==
[~2016-07-26] VITALS: Ht 170.2 cm; Wt 64.0 kg
[~2016-07-26 10:59] MED LIST changes: -*morphine SULFATE 8 MG/ML PERIprocedure ONLY ONE; -ACET-703 PO; -BUPIVACAINE HCL PF 0.5% 30 ML VIAL ONE; -CALC1TAB12 PO; -DO NOT ADM ANY ANTICOAGULANT DRUGS XX PRN; -HYDR-3516 PO; -INSULIN HUMAN REGULAR 1,000 UNITS/10 ML VIAL SQ PRN; -KETAMINE HCL 500 MG/5 ML VIAL ONE; -LACTATED RINGER'S 1000 ML IV SCH; -LIDOCAINE 0.5%/EPINEPHrine 1:200,000 SOLN 50 ML VIAL ONE; -METOPROLOL TARTRATE 25 MG TAB PO PRN; -MIDAZOLAM HCL 2 MG/2 ML VIAL ONE; -MIRA33504 PO; -MULT1TAB84 PO; -ONDANSETRON HCL 4 MG/2 ML VIAL IV PUSH ONE; -ONDANSETRON HCL 4 MG/2 ML VIAL ONE; -PERC10TA27 PO; -PHENYLEPH/NS 1000 MCG/10 ML SYR IV ONE; -POTA10TA8 PO; -PROPOFOL 200 MG/20 ML AMP IV ONE; -SODIUM CHLORID 0.9% 500 ML IV SCH; -fentaNYL CITRATE 250 MCG/5 ML AMP ONE
[2016-07-26 11:02] VITALS: BP 139/70; PULSE 84; RESP 24; TEMP 98; O2SAT 100
[2016-07-26] MEDS ORDERED: SODIUM CHLOR 0.9% 1000 ML INJ 1,000 ML IV SCH (11:13)
[2016-07-26] MEDS ORDERED: HYDR-3516 PO (11:16)
[2016-07-26 11:18] VITALS: BP 125/60; PULSE 73; RESP 18; O2SAT 99
[2016-07-26] MEDS ORDERED: MORPHINE SULFATE 4 MG/ML INJ IV PUSH ONE (11:30)
[2016-07-26] MEDS ORDERED: MORPHINE SULFATE 8 MG/ML INJ IV PUSH ONE (11:30)
[2016-07-26] MEDS ORDERED: SOD PHOSPHATE/SOD BIPHOSPHATE (ADULT) ENEMA 133ML PR ONE (11:30)
[2016-07-26] MEDS ORDERED: ONDANSETRON HCL 4 MG/2 ML VIAL IV PUSH ONE (11:30)
[2016-07-26 11:37] LABS: AUTOMATED NEUTROPHIL # 7.2 TH/MM3 (1.8-7.7); BASOPHIL # 0.1 TH/MM3 (0-0.2); BASOPHIL % 0.6 % (0.0-2.0); EOSINOPHIL # 0.1 TH/MM3 (0-0.4); EOSINOPHIL % 1.6 % (0.0-4.0); HEMATOCRIT 23.4 % (35.0-46.0); HEMO FLAGS DIFF FINAL; LYMPH % 11.3 % (9.0-44.0); MEAN CELL VOLUME 77.4 FL (80.0-100.0); MEAN CORPUSCULAR HEMOGLOBIN 26.3 PG (27.0-34.0); MEAN CORPUSCULAR HGB CONC 33.9 % (32.0-36.0); NEUT % 80.5 % (16.0-70.0); PLATELET COUNT 343 TH/MM3 (150-450); RED BLOOD COUNT 3.02 MIL/MM3 (4.00-5.30); RED CELL DISTRIBUTION WIDTH 17.4 % (11.6-17.2)
[2016-07-26 11:49] LABS: ANION GAP 7 MEQ/L (5-15); AST (GOT) 9 U/L (15-37); BICARBONATE 27.8 MEQ/L (21.0-32.0); BLOOD UREA NITROGEN 11 MG/DL (7-18); CHLORIDE 103 MEQ/L (98-107); GLOMERULAR FILTRATION RATE 53 ML/MIN (>89); SODIUM (NA) 138 MEQ/L (136-145)
[2016-07-26 11:52] LABS: ALKALINE PHOSPHATASE 49 U/L (45-117); ALT (GPT) 16 U/L (10-53); TOTAL BILIRUBIN ADULT 0.3 MG/DL (0.2-1.0)
[2016-07-26] MEDS ORDERED: MIRA33504 PO (11:57)
[2016-07-26] MEDS ORDERED: PERC10TA27 PO (11:57)
[2016-07-26] MEDS ORDERED: HYDROmorphone HCL PF 1 MG/ML VIAL IV PUSH ONE (12:00)
--- NOTE | 2016-07-26 12:07 | PD ---
HPI Chief Complaint: GI Complaint Time Seen by Provider: 11:59 Travel History International Travel<30 days: No Contact w/Intl Traveler<30days: No Traveled to known affect area: No History of Present Illness HPI 41-year-old female that presents to the ED for evaluation of pain in the rectum as well as inability to have a stool since Thursday. Patient had a hemorrhoidectomy done by Dr. Hutchison on Thursday. Patient has had no issues alert and not having a bowel movement since. Per patient she's been taking her pain medication with some relief but she continues to have severe pain. She denies any bleeding of any kind. Patient had a hemorrhoidectomy because of GI bleed. Patient states that her pain currently at this time but moving is 4 out of 10. With movement or touching the area is severe 10 out of 10. She denies any signs of infection. No pus. Per patient she is passing gas but is painful. She does tell me that she contacted her surgeon Dr. Hutchison and Dr. Montero, the surgeons Allyssa recommended that she comes here and he will come here and see her. She voices no fevers chills or sweats. No signs of bleeding. No other medical problems. She says that she is compliant with the medications and diet that were given to her. PFSH Past Medical History Anemia: Yes Blood Disorders: No Cancer: No Cardiac Catheterization: Yes (X 1) Cardiomyopathy: Yes Cardiovascular Problems: Yes (CARDIOMYOPATHY) Chemotherapy: No Congestive Heart Failure: Yes (WITH ) Diabetes: No Diminished Hearing: No Endocrine: No Gastrointestinal Disorders: Yes (ACID REFLUX) Genitourinary: No Headaches: Yes Hepatitis: No Hiatal Hernia: No Hypertension: Yes Immune Disorder: No Musculoskeletal: No Neurologic: No Psychiatric: No Reproductive: No Respiratory: Yes Pneumonia: Yes Radiation Therapy: No Thyroid Disease: Yes ?: Not : 1 Para: 1 Miscarriage: 0 : 0 Past Surgical History Abdominal Surgery: No AICD: No Arteriovenous Shunt: No Cardiac Surgery: Yes (CARDIAC CATH) Section: Yes (X 1) Ear Surgery: No Endocrine Surgery: Yes (THYROIDECTOMY) Eye Surgery: No Genitourinary Surgery: No Gynecologic Surgery: Yes (C SECTION ) Insulin Pump: No Joint Replacement: No Oral Surgery: No Pacemaker: No Thoracic Surgery: No Other Surgery: No (HEMHORROIDECTOMY) Social History Alcohol Use: No Tobacco Use: No Substance Use: No Allergies-Medications (Allergen,Severity, Reaction): Coded Allergies: Tramadol (Verified Allergy, Severe, 07/26/16) HIVES/SWELLING Procardia (Verified Adverse Reaction, Mild, INCREASE HR, TREMBLING, ) Reported Meds & Prescriptions Reported Meds & Active Scripts Active Miralax Powder (Polyethylene Glycol 3350 Powder) 17 Gm Powd 17 Gm PO DAILY Mix and dissolve one measuring cap-ful (17 grams) in water or juice. Percocet (Oxycodone-Acetaminophen) 10-325 mg Tab 1 Tab PO Q4H PRN Reported Hydrocodone-Acetaminophen 5-325 mg Tab Unknown Dose PO Q4H PRN Losartan (Losartan Potassium) 50 Mg Tab 50 Mg PO HS Prilosec (Omeprazole) 20 Mg Cap 20 Mg PO HS Zofran (Ondansetron HCl) 8 Mg Tab 8 Mg PO Q8HR PRN Synthroid (Levothyroxine Sodium) 125 Mcg Tab 125 Mcg PO HS Mirena (Levonorgestrel (Iud)) 20 Mcg/24 Hr Iud 52 Mg I-UTERINE ONCE Lasix (Furosemide) 20 Mg Tab 20 Mg PO DAILY Review of Systems General / Constitutional: No: Fever, Chills, Weight Gain, Weight Loss, Other Eyes: No: Diploplia, Blurred Vision, Photophobia, Drainage, Redness, Foreign Body Sensation, Pain, Tearing, Blind Spots, Visual changes, Blindness, Other HENT: No: Headaches, Vertigo, Lightheadedness, Sore Throat, Rhinitis, Rhinorrhea, Congestion, Nosebleed, Neck Stiffness, Neck Pain, Masses, Gingival Bleeding, Dental Difficulties, Ear Discharge, Earache, Other Cardiovascular: No: Chest Pain or Discomfort, Palpitations, Irregular Rhythm, Tachycardia, Diaphoresis, Syncope, Dyspnea on exertion, Varicosities, Edema, Cyanosis, Varicosities, Phlebitis, Claudication, Other Respiratory: No: Cough, Shortness of Breath, Wheezing, Sneezing, Orthopnea, Hemoptysis, Stridor, Night Sweats, Pleuritic Pain, Other Gastrointestinal: Positive: Constipation, Other (rectal pain), No: Nausea, Vomiting, Diarrhea, Abdominal Pain, Hematemesis, Hematochezia, Changes in Bowel Habits, Indigestion, Dysphagia, Loss of Appetite Genitourinary: No: Urgency, Frequency, Dysuria, Nocturia, Hematuria, Decreased Urinary Output, Oliguria, Hesitancy, Dribbling, Incontinence, Pelvic Pain, Flank Pain, Dyspareunia, Discharge, Dysmenorrhea, Menorrhagia, Metorrhagia, Vaginal Bleeding, Other Musculoskeletal: No: Myalgias, Arthralgias, Limited ROM, Weakness, Cramping, Edema, Pain, Atrophy, Other Skin: No Rash, No Itching, No Dryness, No Lumps, No Hives, No Change in Pigmentation, No Change in nails, No Alopecia, No Lesions, No Breast Lumps, No Breast Tenderness, No Breast Swelling, No Other Neurologic: No: Weakness, Dizziness, Syncope, Focal Abnormalities, Coordination Problem, Tremor, Ataxia, Headache, Change in Mentation, Slurred Speech, Paresthesia, Incontinence, Seizures, Sensory Disturbance, Other Endocrine: No: Heat Intolerance, Cold Intolerance, Polyuria, Polydipsia, Other Hematologic/Lymphatic: No: Easy Bruising, Lymph Node Enlargement, Other Physical Exam Narrative GENERAL: SKIN: Warm and dry. HEAD: Atraumatic. Normocephalic. EYES: Pupils equal and round. No scleral icterus. No injection or drainage. ENT: No nasal bleeding or discharge. Mucous membranes pink and moist. Tongue is midline. No uvula deviation. NECK: Trachea midline. No JVD. CARDIOVASCULAR: Regular rate and rhythm. No murmurs, S3, S4. RESPIRATORY: No accessory muscle use. Clear to auscultation. Breath sounds equal bilaterally. GASTROINTESTINAL: Abdomen soft, non-tender, nondistended. Hepatic and splenic margins not palpable. Rectal exam reveals 3 different Vycril sutures and no sign of infection. Patient does have what appears to be a protruding hemorrhoid on the rectum. It appears to already been surgically removed and it' s very tender in the area. No sign of abscess or infection. This was done with female nurse present. MUSCULOSKELETAL: Extremities without clubbing, cyanosis, or edema. No obvious deformities. Full range of motion of the upper and lower extremities bilaterally. 2+ pulses bilaterally. NEUROLOGICAL: Awake and alert. No obvious cranial nerve deficits. Motor grossly within normal limits. Five out of 5 muscle strength in the arms and legs. Normal speech. PSYCHIATRIC: Appropriate mood and affect; insight and judgment normal. Data Data Last Documented VS Vital Signs Date Time Temp Pulse Resp B/P Pulse Ox O2 Delivery O2 Flow Rate FiO2 07/26/16 12:14 18 07/26/16 11:18 73 125/60 99 Room Air 07/26/16 11:02 98.0 Orders Complete Blood Count With Diff (07/26/16 11:13) Comprehensive Metabolic Panel (07/26/16 11:13) Lipase (07/26/16 11:13) Lactic Acid (07/26/16 11:13) Iv Access Insert/Monitor (07/26/16 11:13) Sodium Chlor 0.9% 1000 Ml Inj (Ns 1000 M (07/26/16 11:13) Morphine Inj (Morphine Inj) (07/26/16 11:30) Ondansetron Inj (Zofran Inj) (07/26/16 11:30) Morphine Inj (Morphine Inj) (07/26/16 11:30) Fleets Enema (Adult) (Fleets Enema (Adul (07/26/16 11:30) Hydromorphone Pf Inj (Dilaudid Pf Inj) (07/26/16 12:00) Labs Laboratory Tests Test 07/26/16 11:25 White Blood Count 9.0 TH/MM3 Red Blood Count 3.02 MIL/MM3 Hemoglobin 7.9 GM/DL Hematocrit 23.4 % Mean Corpuscular Volume 77.4 FL Mean Corpuscular Hemoglobin 26.3 PG Mean Corpuscular Hemoglobin 33.9 % Concent Red Cell Distribution Width 17.4 % Platelet Count 343 TH/MM3 Mean Platelet Volume 9.5 FL Neutrophils (%) (Auto) 80.5 % Lymphocytes (%) (Auto) 11.3 % Monocytes (%) (Auto) 6.0 % Eosinophils (%) (Auto) 1.6 % Basophils (%) (Auto) 0.6 % Neutrophils # (Auto) 7.2 TH/MM3 Lymphocytes # (Auto) 1.0 TH/MM3 Monocytes # (Auto) 0.5 TH/MM3 Eosinophils # (Auto) 0.1 TH/MM3 Basophils # (Auto) 0.1 TH/MM3 CBC Comment DIFF FINAL Differential Comment Sodium Level 138 MEQ/L Potassium Level 4.0 MEQ/L Chloride Level 103 MEQ/L Carbon Dioxide Level 27.8 MEQ/L Anion Gap 7 MEQ/L Blood Urea Nitrogen 11 MG/DL Creatinine 1.14 MG/DL Estimat Glomerular Filtration 53 ML/MIN Rate Random Glucose 145 MG/DL Lactic Acid Level 2.6 mmol/L Calcium Level 8.6 MG/DL Total Bilirubin 0.3 MG/DL Aspartate Amino Transf 9 U/L (AST/SGOT) Alanine Aminotransferase 16 U/L (ALT/SGPT) Alkaline Phosphatase 49 U/L Total Protein 6.9 GM/DL Albumin 3.6 GM/DL Lipase 117 U/L MDM Medical Decision Making Medical Screen Exam Complete: Yes Emergency Medical Condition: Yes Medical Record Reviewed: Yes Interpretation(s) CBC & BMP Diagram 07/26/16 11:25 LFTs WNL lactic acid elevated Differential Diagnosis Rectal pain versus bleed versus obstruction versus constipation Narrative Course 41-year-old female that presents to the ED for evaluation of constipation. Patient was properly examined and was found to have signs and symptoms concerning for obstruction versus postsurgical constipation. Case was discussed with Dr. Andrews who came here and evaluated the patient and recommended that before he comes in see the patient will give patient morphine 8 mg as well as have an enema bradycardia for likely disimpaction. He himself came and evaluated the patient in the rectal exam and found no bleeding and no sign of impaction. He and I spoke about the blood work that was done before he come here to see the patient and he was made aware that the patient's hemoglobin and hematocrit had dropped 1 point since her with the first. At this time he recommends that patient follows up with her surgeon outpatient and we increase her pain medication and he instructed her specifically to do a more liquid diet to help her go to the bathroom. He wants me to prescribe the patient Percocet 10 mg every 4 hours for needed for pain and follow-up with Dr. Hutchison this week. Patient was told all this and agrees with plan. Okay to be discharged. Patient was given 1 dose of Dilaudid here before leaving as the rectal exam was very debilitating for the patient. She understands reasons to come back. See ED for worsening symptoms. I spoke with my attending Dr. Best who was made aware of all findings and Dr. Padilla recommendations and agrees with plan. Diagnosis Primary Impression: Rectal pain Additional Impression: Constipation Qualified Code: K59.00 - Constipation, unspecified constipation type Patient Instructions: General Instructions, Narcotic given in the ED Additional Instructions: Take this new pain medication as needed. Follow with Dr. Hutchison this week. See ED for any worsening symptoms like bleeding, weakness, worsening paleness. Do not drink or drive with taking pain medication. Increase laxative use to help you make more soft stools. Med/Other Pt SpecificInfo: Prescription(s) given Scripts Polyethylene Glycol 3350 Powder (Miralax Powder)17 Gm Powd17 Gm PO DAILY #1 BOTTLE Ref 0 Mix and dissolve one measuring cap-ful (17 grams) in water or juice. Prov:Helio Best MD 07/26/16 Oxycodone-Acetaminophen (Percocet)10-325 mg Tab1 Tab PO Q4H PRN (PAIN) #20 TAB Ref 0 Prov:Helio Best MD 07/26/16 Disposition: 01 DISCHARGE HOME Condition: Stable Anil Subramanian Jul 26, 2016 12:07
[2016-07-26 13:09] VITALS: RESP 16
== END 2016-07-26 13:11 | disposition home or self-care (01) ==
LOC: NEPE 10:59
DX: K62.89 Other specified diseases of anus and rectum (principal); K59.00 Constipation, unspecified; D64.9 Anemia, unspecified; I42.9 Cardiomyopathy, unspecified; I10 Essential (primary) hypertension; E07.9 Disorder of thyroid, unspecified
CPT/HCPCS: 80053; 83605; 83690; 85025; 96361; 96374; 96375; 99283; J1170; J2270; J2405; J7030

== ENCOUNTER 2017-04-22 18:29 | Emergency (ER) | payer OTHER ==
[~2017-04-22 18:29] MED LIST changes: +HYDR-3516 PO; +MIRA33504 PO; +PERC10TA27 PO
[2017-04-22 18:46] VITALS: BP 137/78; PULSE 66; RESP 20; TEMP 99
[2017-04-22] MEDS ORDERED: CIPROFLOXACIN 0.3% OPTH SOLN 2.5 ML BTL RIGHT EYE ONE (19:30)
[2017-04-22] MEDS ORDERED: CIPR0.3S2 RIGHT EYE (19:32)
--- NOTE | 2017-04-22 19:35 | PD ---
HPI . Conjunctivitis Chief Complaint: Eye Problems/Injury Time Seen by Provider: 19:06 Travel History International Travel<30 days: No Contact w/Intl Traveler<30days: No Traveled to known affect area: No History of Present Illness HPI 42 year female patient presents to emergency room for evaluation of left eye irritation 4 days. Patient denies any foreign body sensation. Patient denies any eye trauma. Patient denies any fevers, chills, nausea, vomiting. Patient denies any blurred vision. Patient is contact lens wearer. Patient's only major medical history is hypertension, GERD, hypothyroidism. PFSH Past Medical History Anemia: Yes Blood Disorders: No Cancer: No Cardiac Catheterization: Yes (X 1) Cardiomyopathy: Yes Cardiovascular Problems: Yes (CARDIOMYOPATHY) Chemotherapy: No Congestive Heart Failure: Yes (WITH ) Diabetes: No Diminished Hearing: No Endocrine: No Gastrointestinal Disorders: Yes (ACID REFLUX) GERD: Yes Genitourinary: No Headaches: Yes Hepatitis: No Hiatal Hernia: No Hypertension: Yes Immune Disorder: No Musculoskeletal: No Neurologic: No Psychiatric: No Reproductive: No Respiratory: Yes Pneumonia: Yes Radiation Therapy: No Thyroid Disease: Yes Tetanus Vaccination: Unknown ?: Not LMP: NOW : 1 Para: 1 Miscarriage: 0 : 0 Past Surgical History Abdominal Surgery: No AICD: No Arteriovenous Shunt: No Cardiac Surgery: Yes (CARDIAC CATH) Section: Yes (X 1) Ear Surgery: No Endocrine Surgery: Yes (THYROIDECTOMY) Eye Surgery: No Genitourinary Surgery: No Gynecologic Surgery: Yes (C SECTION ) Insulin Pump: No Joint Replacement: No Oral Surgery: No Pacemaker: No Thoracic Surgery: No Other Surgery: Yes (HEMHORROIDECTOMY) Social History Alcohol Use: No Tobacco Use: No Substance Use: No Allergies-Medications (Allergen,Severity, Reaction): Coded Allergies: tramadol (Unverified Allergy, Severe, 01/27/17) HIVES/SWELLING nifedipine (Unverified Adverse Reaction, Mild, INCREASE HR, TREMBLING, ) Reported Meds & Prescriptions Reported Meds & Active Scripts Active Ciprofloxacin Opth Drops (Ciprofloxacin HCl) 0.3% Soln 2 Drop RIGHT EYE Q4H 7 Days while awake x 5 days. Miralax Powder (Polyethylene Glycol 3350 Powder) 17 Gm Powd 17 Gm PO DAILY Mix and dissolve one measuring cap-ful (17 grams) in water or juice. Percocet (Oxycodone-Acetaminophen) 10-325 mg Tab 1 Tab PO Q4H PRN Reported Hydrocodone-Acetaminophen 5-325 mg Tab Unknown Dose PO Q4H PRN Losartan (Losartan Potassium) 50 Mg Tab 50 Mg PO HS Prilosec (Omeprazole) 20 Mg Cap 20 Mg PO HS Zofran (Ondansetron HCl) 8 Mg Tab 8 Mg PO Q8HR PRN Synthroid (Levothyroxine Sodium) 125 Mcg Tab 125 Mcg PO HS Mirena (Levonorgestrel (Iud)) 20 Mcg/24 Hr Iud 52 Mg I-UTERINE ONCE Lasix (Furosemide) 20 Mg Tab 20 Mg PO DAILY Review of Systems Except as stated in HPI: all other systems reviewed are Neg Physical Exam Narrative GENERAL: Well-nourished, well-developed 42 year old female patient in no acute distress. Nontoxic appearing. SKIN: Focused skin assessment warm/dry. HEAD: Normocephalic. Atraumatic. EYES: Left eye injected. PERRLA demonstrated, extraocular motions intact bilaterally. Visual acuity: Right eye 20/30, left eye 20/30, bilateral eyes 20/30. NECK: Supple, trachea midline. No JVD or lymphadenopathy. CARDIOVASCULAR: Regular rate and rhythm without murmurs, gallops, or rubs. RESPIRATORY: Breath sounds equal bilaterally. No accessory muscle use. GASTROINTESTINAL: Abdomen soft, non-tender, nondistended. MUSCULOSKELETAL: No cyanosis, or edema. Data Data Last Documented VS Vital Signs Date Time Temp Pulse Resp B/P (MAP) Pulse Ox O2 Delivery O2 Flow Rate FiO2 04/22/17 18:46 99.0 66 20 137/78 (97) Orders Orders Ciprofloxacin 0.3% Opth Soln (Ciloxan 0. (04/22/17 19:30) MDM Medical Decision Making Medical Screen Exam Complete: Yes Emergency Medical Condition: Yes Differential Diagnosis Differential diagnoses include but not limited to viral conjunctivitis, bacterial conjunctivitis, irritant conjunctivitis, iritis, keratitis Narrative Course 42-year-old female patient presents emergency department for evaluation of left eye injection 4 days. Patient is a contact lens wearer. Patient has no systemic symptoms. Patient denies any visual disturbances with this eye complaint. Patient denies any eye trauma. Patient has no foreign body sensation. There is no purulent discharge noted. Conjunctival injection and left eye. Patient given a prescription for ophthalmic ciprofloxacin and discharged home with instructions to discard her current contact lenses (they are disposable), wear glasses for a couple days and then apply her new contact lenses when her conjunctivitis clears. Patient instructed to return the emergency Department with any worsening condition but otherwise follow up with her primary care or bonbon cream warmer. Diagnosis Primary Impression: Conjunctivitis Qualified Codes: H10.32 - Unspecified acute conjunctivitis, left eye Referrals: Primary Care Physician Patient Instructions: Conjunctivitis (ED), General Instructions Additional Instructions: Please return to emergency department if your symptoms return or worsen. Follow up with your primary care provider. Take medications as prescribed. Do not re-contaminate eye by using the same contact lenses. Med/Other Pt SpecificInfo: Prescription(s) given Scripts Ciprofloxacin Opth Drops (Ciprofloxacin Opth Drops) 0.3% Soln 2 DROP RIGHT EYE Q4H for Infection for 7 Days, #1 BOTTLE 0 Refills while awake x 5 days. Prov: Grace Dumont 04/22/17 Disposition: 01 DISCHARGE HOME Condition: Stable Grace Dumont Apr 22, 2017 19:35
== END 2017-04-22 19:56 | disposition home or self-care (01) ==
LOC: PHEFT 18:29
DX: H10.32 Unspecified acute conjunctivitis, left eye (principal); I42.9 Cardiomyopathy, unspecified
CPT/HCPCS: 99283

== ENCOUNTER 2017-11-26 09:28 | Emergency (ER) | payer OTHER ==
[~2017-11-26] VITALS: Ht 170.2 cm; Wt 63.0 kg
[~2017-11-26 09:28] MED LIST changes: +CIPR0.3S2 RIGHT EYE
[2017-11-26 09:34] VITALS: BP 137/90; PULSE 77; RESP 16; TEMP 98.4; O2SAT 98
[2017-11-26] MEDS ORDERED: TOPI25 PO ×2 (09:50→10:51)
--- NOTE | 2017-11-26 09:52 | PD ---
HPI Chief Complaint: Allergic/Adverse Reaction Time Seen by Provider: 09:43 Travel History International Travel<30 days: No Contact w/Intl Traveler<30days: No Traveled to known affect area: No History of Present Illness HPI This 42-year-old female woke up with swelling of her face and hives all over her body. She has not had a reaction like this before. Yesterday she had a fall and landed on her right hip. She did take some Aleve last night but she takes Aleve on a regular basis. There is no unusual foods. She had eaten rice and chicken last night. She is itching. She is not short of breath. She has a history of cardiomyopathy and is supposed to be on Synthroid losartan and Topamax. She has not had a medications recently because her insurance was lost and she does not have a doctor. PFSH Past Medical History Hx Anticoagulant Therapy: No Anemia: Yes Blood Disorders: No Cancer: No Cardiac Catheterization: Yes (X 1) Cardiomyopathy: Yes Cardiovascular Problems: Yes (HTN, 30% EF PER PATIENT, CARDIOMYOPATHY) Chemotherapy: No Congestive Heart Failure: Yes (WITH ) Diabetes: No Diminished Hearing: No Endocrine: No Gastrointestinal Disorders: Yes (ACID REFLUX) GERD: Yes Genitourinary: No Headaches: Yes Hepatitis: No Hiatal Hernia: No Hypertension: Yes Immune Disorder: No Musculoskeletal: No Neurologic: No Psychiatric: No Reproductive: No Respiratory: Yes Pneumonia: Yes Radiation Therapy: No Thyroid Disease: Yes Tetanus Vaccination: Unknown ?: Not LMP: 10 YEARS AGO, USES MIRENA : 1 Para: 1 Miscarriage: 0 : 0 Past Surgical History Abdominal Surgery: No AICD: No Arteriovenous Shunt: No Cardiac Surgery: Yes (CARDIAC CATH) Section: Yes (X 1) Ear Surgery: No Endocrine Surgery: Yes (THYROIDECTOMY) Eye Surgery: No Genitourinary Surgery: No Gynecologic Surgery: Yes (C SECTION ) Insulin Pump: No Joint Replacement: No Oral Surgery: No Pacemaker: No Thoracic Surgery: No Other Surgery: Yes (HEMHORROIDECTOMY) Social History Alcohol Use: No Tobacco Use: No Substance Use: No Allergies-Medications (Allergen,Severity, Reaction): Coded Allergies: tramadol (Unverified Allergy, Severe, 11/26/17) HIVES/SWELLING nifedipine (Unverified Adverse Reaction, Mild, INCREASE HR, TREMBLING, ) Reported Meds & Prescriptions Reported Meds & Active Scripts Active Reported Topamax (Topiramate) 25 Mg Tab 25 Mg PO BID Losartan (Losartan Potassium) 50 Mg Tab 50 Mg PO HS Synthroid (Levothyroxine Sodium) 125 Mcg Tab 125 Mcg PO HS Mirena (Levonorgestrel (Iud)) 20 Mcg/24 Hr Iud 52 Mg I-UTERINE ONCE Review of Systems General / Constitutional: No: Fever, Chills Eyes: No: Diploplia HENT: No: Headaches, Vertigo Cardiovascular: No: Chest Pain or Discomfort, Palpitations Respiratory: No: Cough, Shortness of Breath Gastrointestinal: No: Nausea, Vomiting Genitourinary: No: Urgency, Frequency Musculoskeletal: No: Myalgias, Arthralgias Skin: Positive Rash, Positive Itching, Positive Lumps Neurologic: No: Weakness, Dizziness Hematologic/Lymphatic: No: Easy Bruising Physical Exam Narrative GENERAL well-developed female SKIN: Focused skin assessment warm/dry. There are fairly diffuse hives HEAD: Atraumatic. Normocephalic. Both ears are quite swollen. The right eye is swollen shut. There is some edema around the left eye. EYES: Pupils equal and round. No scleral icterus. No injection or drainage. ENT: No nasal bleeding or discharge. Mucous membranes pink and moist. NECK: Trachea midline. No JVD. CARDIOVASCULAR: Regular rate and rhythm. No murmur appreciated. RESPIRATORY: No accessory muscle use. Clear to auscultation. Breath sounds equal bilaterally. GASTROINTESTINAL: Abdomen soft, non-tender, nondistended. Hepatic and splenic margins not palpable. MUSCULOSKELETAL: No obvious deformities. No clubbing. No cyanosis. No edema. NEUROLOGICAL: Awake and alert. No obvious cranial nerve deficits. Motor grossly within normal limits. Normal speech. PSYCHIATRIC: Appropriate mood and affect; insight and judgment normal. Data Data Last Documented VS Vital Signs Date Time Temp Pulse Resp B/P (MAP) Pulse Ox O2 Delivery O2 Flow Rate FiO2 11/26/17 10:00 69 16 138/89 (105) 97 Room Air 11/26/17 09:34 98.4 Orders Orders ^ Saline Lock (11/26/17 09:49) Diphenhydramine Inj (Benadryl Inj) (11/26/17 10:00) Methylprednisolone So Succ Inj (Solumedr (11/26/17 10:00) [facility] Medical Decision Making Medical Screen Exam Complete: Yes Emergency Medical Condition: Yes Medical Record Reviewed: Yes Differential Diagnosis Differential was allergic reaction Narrative Course This is clearly an allergic reaction. She has been given Benadryl and Solu- Medrol. She is not itching and there is been no progression of her symptoms. I am reluctant to give her adrenaline because of her history of cardiomyopathy. She is stable and will be released with prescription for Medrol Dosepak she is to take Benadryl 25 every 6 hours Diagnosis Primary Impression: Allergic reaction Additional Instructions: Take Benadryl 25 mg every 6 hours Scripts Methylprednisolone Dosepak (Medrol Dosepak) 4 Mg Dspk 4 MG PO DIRECTED, #1 DSPK 0 Refills Per Pharmacist direction Prov: Lloyd Morocho MD 11/26/17 Topiramate (Topamax) 25 Mg Tab 25 MG PO BID for Control Seizures, #60 TAB 0 Refills Prov: Lloyd Morocho MD 11/26/17 Losartan (Losartan) 50 Mg Tab 50 MG PO BID for Blood Pressure Management, #60 TAB 0 Refills Prov: Lloyd Morocho MD 11/26/17 Levothyroxine (Synthroid) 125 Mcg Tab 125 MCG PO DAILY for Thyroid, #30 TAB 0 Refills Prov: Lloyd oMrocho MD 11/26/17 Disposition: 01 DISCHARGE HOME Condition: Stable Lloyd Morocho MD Nov 26, 2017 09:52
[2017-11-26 10:00] VITALS: BP 138/89; PULSE 69; RESP 16; O2SAT 97
[2017-11-26] MEDS ORDERED: diphenhydrAMINE HCL 50 MG/ML VIAL IV PUSH ONE (10:00)
[2017-11-26] MEDS ORDERED: methylPREDNISolone SOD SUCC 125 MG/2 ML VIAL IV PUSH ONE (10:00)
[2017-11-26 10:50] VITALS: BP 149/88; PULSE 69; PULSE 89; RESP 16; O2SAT 98
[2017-11-26] MEDS ORDERED: LOSA50TA PO (10:51)
[2017-11-26] MEDS ORDERED: LEVO.125 PO (10:51)
[2017-11-26] MEDS ORDERED: MEDR4PAK PO (10:51)
[2017-11-26 11:19] VITALS: BP 135/77
== END 2017-11-26 11:21 | disposition home or self-care (01) ==
LOC: PHED 09:28
DX: T78.40XA Allergy, unspecified, initial encounter (principal); X58.XXXA Exposure to other specified factors, initial encounter; O90.3 Peripartum cardiomyopathy; I50.9 Heart failure, unspecified; K21.9 Gastro-esophageal reflux disease without esophagitis; I10 Essential (primary) hypertension
CPT/HCPCS: 96374; 96375; 99284; J1200; J2930